=== PATIENT | female | born 1985 | race Caucasian/White ===

== ENCOUNTER 2018-10-09 15:54 | Emergency (ER) | payer MEDICAID ==
[~2018-10-09] VITALS: Ht 182.9 cm; Wt 85.0 kg
[~2018-10-09 15:54] MED LIST: FLINTSTONES OR; GINGER ROOT250 MG PO; LORTAB5 PO; NAPROSYN500 MG PO; NO; NO MEDICATIONS; ONDANSETRON4 MG OR; PHENERGAN25 MG RE; PHENERGAN25 MG/TAB PO; PROMETHAZINE25 M1 PO; ULTRAM50 M1 PO; ULTRAM50 MG OR; VITAMIN B-625 MG PO; ZOFRAN ODT4 MG PO; ZOFRAN4 MG/TAB PO
[2018-10-09 18:27] VITALS: BP 128/63
[2018-10-09] MEDS ORDERED: HYDROCO/APAP1 TA9 PO (18:41)
[2018-10-09] MEDS ORDERED: MOTRIN400 MG PO (18:41)
== END 2018-10-09 18:45 | disposition home or self-care (01) ==
LOC: ED 15:54
DX: S53.104A Unspecified dislocation of right ulnohumeral joint, initial encounter (principal); F17.200 Nicotine dependence, unspecified, uncomplicated; W01.0XXA Fall on same level from slipping, tripping and stumbling without subsequent striking against object, initial encounter; Y93.89 Activity, other specified; Y92.009 Unspecified place in unspecified non-institutional (private) residence as the place of occurrence of the external cause

== ENCOUNTER 2018-11-14 08:55 | Emergency (ER) | payer MEDICAID ==
[~2018-11-14] VITALS: Ht 335.3 cm; Wt 75.0 kg
[~2018-11-14 08:55] MED LIST changes: +HYDROCO/APAP1 TA9 PO; +MOTRIN400 MG PO
[2018-11-14 09:35] LABS: IMMATURE GRANULOCYTES 0.4 % (0.0-5.0); MEAN CORPUSCULAR HGB 33.7 pG CALC (26.0-32.0); MEAN CORPUSCULAR HGB CONC 35.2 g/L CALC (32.0-36.0); NEUT# 9.81 thou/uL (2.00-7.15); RED BLOOD COUNT 4.63 mill/uL (4.20-5.60); RED CELL DISTRI WIDTH 12.7 % (11.5-15.5)
[2018-11-14 09:40] LABS: HEMATOCRIT 44.3 % (37.0-47.0); HEMOGLOBIN 15.6 g/dl (12.0-16.0); MEAN CELL VOLUME 95.7 fL CALC (80.0-100.0)
[2018-11-14 09:52] LABS: ALKALINE PHOSPHATASE 67 u/l (38-126); BILIRUBIN, TOTAL 0.8 mg/dL (0.0-1.4); BUN 10 mg/dL (7-17); BUN/CREATININE RATIO 17 (12-20 (CALC)); CARBON DIOXIDE 23 mmol/l (22-30); CHLORIDE 105 mmol/l (95-108); CREATININE 0.6 mg/dL (0.5-1.0); GFR > 60 ML/MIN (>=60 (CALC)); GFR FOR AFR.AMER. > 60 ML/MIN (>=60 (CALC)); LIPASE 52 u/l (23-300); SGOT/AST 36 u/l (14-36); TOTAL PROTEIN 7.9 g/dL (6.3-8.2)
[2018-11-14 09:58] LABS: ALBUMIN 4.9 g/dL (3.2-5.0); ANION GAP 16 (6-22 (CALC)); POTASSIUM 4.1 mmol/l (3.5-5.1); SODIUM 140 mmol/l (137-146)
[2018-11-14 11:24] LABS: URINE BILIRUBIN - DIPSTICK NEGATIVE (NEGATIVE); URINE BLOOD DIPSTICK TRACE-LYSED (NEGATIVE); URINE COLOR YELLOW; URINE GLUCOSE - DIPSTICK NEGATIVE (NEGATIVE); URINE KETONE 40 mg/dL (NEGATIVE); URINE LEUK ESTERASE NEGATIVE (NEGATIVE); URINE NITRITE - DIPSTICK NEGATIVE (Negative); URINE PH >=9.0 (4.5-8.0); URINE PROTEIN - DIPSTICK NEGATIVE (NEG-TRACE); URINE UROBILINOGEN - DIPSTICK 0.2 E.U./dL (0.2)
[2018-11-14] MEDS ORDERED: ONDANSETRON4 MG PO (11:48)
[2018-11-14 12:59] VITALS: BP 106/49
== END 2018-11-14 12:59 | disposition home or self-care (01) ==
LOC: ED 08:55
PROVIDERS: Family Medicine
DX: R10.13 Epigastric pain (principal); R11.10 Vomiting, unspecified; F17.200 Nicotine dependence, unspecified, uncomplicated
CPT/HCPCS: Q9967

== ENCOUNTER 2019-11-20 10:28 | Observation (INO) | payer MEDICAID ==
[~2019-11-20] VITALS: Ht 170.2 cm; Wt 79.5 kg
[~2019-11-20 10:28] MED LIST changes: +ONDANSETRON4 MG PO
--- NOTE | 2019-11-20 10:36 | NUR ---
AMBULATED TO ROOM ACTIVLY DRY HEAVING
--- NOTE | 2019-11-20 11:00 | NUR ---
PT STATES ABD PAIN HAS STARTED LAST NIGHT. PT CRYING AND YELLING ON STRETCHER, PT DENIES ANY VOMITING OR DIRRAHEA. PT IS AOX4,. DENIES AYN C/P, SOB OR WEAKNESS
[2019-11-20 11:08] LABS: HEMATOCRIT 44.5 % (37.0-47.0); HEMOGLOBIN 15.4 g/dl (12.0-16.0); IMMATURE GRANULOCYTES 0.4 % (0.0-5.0); MEAN CELL VOLUME 96.1 fL CALC (80.0-100.0); MEAN CORPUSCULAR HGB 33.3 pG CALC (26.0-32.0); MEAN CORPUSCULAR HGB CONC 34.6 g/L CALC (32.0-36.0); NEUT# 12.77 thou/uL (2.00-7.15); RED BLOOD COUNT 4.63 mill/uL (4.20-5.60); RED CELL DISTRI WIDTH 12.8 % (11.5-15.5)
[2019-11-20 11:39] LABS: ALBUMIN 4.9 g/dL (3.2-5.0); ALKALINE PHOSPHATASE 74 u/l (38-126); AMYLASE 43 u/l (30-110); ANION GAP 18 (6-22 (CALC)); BILIRUBIN, TOTAL 1.1 mg/dL (0.0-1.4); BUN 16 mg/dL (7-17); BUN/CREATININE RATIO 34 (12-20 (CALC)); CARBON DIOXIDE 21 mmol/l (22-30); CHLORIDE 103 mmol/l (95-108); CREATININE 0.5 mg/dL (0.5-1.0); GFR > 60 ML/MIN (>=60 (CALC)); GFR FOR AFR.AMER. > 60 ML/MIN (>=60 (CALC)); LIPASE 55 u/l (23-300); POTASSIUM 3.9 mmol/l (3.5-5.1); SGOT/AST 31 u/l (14-36); SODIUM 138 mmol/l (137-146); TOTAL PROTEIN 8.6 g/dL (6.3-8.2)
--- NOTE | 2019-11-20 12:00 | NUR ---
PT RESTING ON STRETHCER, IV PATENT WITH FLUIDS RUNNING. PT STATES THAT PAIN IS STARTING TO RETURN
--- NOTE | 2019-11-20 13:00 | NUR ---
PAIN AND NAUSEA HAS DECREASED WITH MEDICATION
--- NOTE | 2019-11-20 14:00 | NUR ---
PT ASLEEP ON STRETCHER,
[2019-11-20 14:44] LABS: URINE BILIRUBIN - DIPSTICK NEGATIVE (NEGATIVE); URINE BLOOD DIPSTICK TRACE-INTACT (NEGATIVE); URINE COLOR YELLOW; URINE GLUCOSE - DIPSTICK NEGATIVE (NEGATIVE); URINE KETONE 40 mg/dL (NEGATIVE); URINE LEUK ESTERASE NEGATIVE (NEGATIVE); URINE NITRITE - DIPSTICK NEGATIVE (Negative); URINE PROTEIN - DIPSTICK 30 mg/dL (NEG-TRACE); URINE UROBILINOGEN - DIPSTICK 0.2 E.U./dL (0.2)
[2019-11-20 14:52] LABS: BARBITURATES NEGATIVE (NEGATIVE); COCAINE NEGATIVE (NEGATIVE); METHADONE NEGATIVE (NEGATIVE); OXCYCODONE NEGATIVE (NEGATIVE); TETRAHYDROCANNABIONOL POSITIVE (NEGATIVE); TRICYLIC ANTIDEPRESSANTS NEGATIVE (NEGATIVE)
--- NOTE | 2019-11-20 15:00 | NUR ---
PT ASLEEP ON STRETCHER, AWAKENS WITH VOICE, PT DENIES ANY COMPLAINTS AT THIS TIME.
[2019-11-20 15:03] LABS: URINE BACTERIA FEW hpf; URINE SQUAMOUS EPITHELIAL CELL FEW EPI/hpf (0-FEW)
--- NOTE | 2019-11-20 16:00 | NUR ---
PT RESTING ON STRETCHER, IV PATENT WITH FLUIDS RUNNING
--- NOTE | 2019-11-20 17:00 | NUR ---
PT ASLEEP ON STRETCHER, AROUSES EASILY- NO NEEDS STATED
--- NOTE | 2019-11-20 18:00 | NUR ---
PT RESTING ON STRETCHER, AWAITING ADMISSION
--- NOTE | 2019-11-20 18:24 | NUR ---
REPORT CALLED TO [facility]- CORRINE RAUSCH ACCEPTED PT
[2019-11-20 18:41] VITALS: BP 99/61
--- NOTE | 2019-11-20 18:41 | NUR ---
PT ARRIVED TO FLOOR ACCOMPANIED BY ER NURSE. NO DISTRESS. PT ORIENTED TO ROOM AND FLOOR. CALL LIGHT WITHIN REACH. VSS. PT AWAKE AND ORIENTED X4.
[2019-11-20 20:00] VITALS: BP 150/74
--- NOTE | 2019-11-20 21:50 | NUR ---
PT SLEEPING IN BED. NO DISTRESS NOTED. CONTINUE TO MONITOR.
[2019-11-21] VITALS: BP 91/55
--- NOTE | 2019-11-21 00:53 | NUR ---
PT DENIES ANY N&V AT THIS TIME. STATES SHE WILL GO BACK TO SLEEP. CONTINUE TO MONITOR.
--- NOTE | 2019-11-21 02:10 | NUR ---
ASSISTED PT TO THE BATHROOM. STEADY GAIT NOTED. PT DENIES ANY NAUSEA OR DIZZINESS. CONTINUE TO MONITOR.
[2019-11-21 04:00] VITALS: BP 90/51
--- NOTE | 2019-11-21 05:53 | NUR ---
PT SLEEPING IN BED. NO DISTRESS NOTED. CONTINUE TO MONITOR.
[2019-11-21 06:49] LABS: MEAN CELL VOLUME 98.1 fL CALC (80.0-100.0); MEAN CORPUSCULAR HGB 33.6 pG CALC (26.0-32.0); MEAN CORPUSCULAR HGB CONC 34.2 g/L CALC (32.0-36.0); RED BLOOD COUNT 3.72 mill/uL (4.20-5.60)
[2019-11-21 06:53] LABS: HEMATOCRIT 36.5 % (37.0-47.0); HEMOGLOBIN 12.5 g/dl (12.0-16.0)
[2019-11-21 07:09] LABS: ANION GAP 10 (6-22 (CALC)); BUN 11 mg/dL (7-17); BUN/CREATININE RATIO 24 (12-20 (CALC)); CARBON DIOXIDE 20 mmol/l (22-30); CHLORIDE 110 mmol/l (95-108); CREATININE 0.5 mg/dL (0.5-1.0); GFR > 60 ML/MIN (>=60 (CALC)); GFR FOR AFR.AMER. > 60 ML/MIN (>=60 (CALC)); POTASSIUM 3.4 mmol/l (3.5-5.1); SODIUM 137 mmol/l (137-146)
--- NOTE | 2019-11-21 08:50 | NUR ---
HEAD TO TOE ASSESSMENT COMPLETED. NO C/O PAIN NOR DISCOMFORT. SKIN INTACT, NO RESP DISSTRESS NOTED, IV INTACT WITH FLUIDS AT 100 HR/ML. LAST BM 11/21/19. POC DISCUSSED.
[2019-11-21 11:46] VITALS: BP 103/65
[2019-11-21] MEDS ORDERED: ZOFRAN4 MG/TAB PO (13:08)
[2019-11-21 15:32] VITALS: BP 112/64
--- NOTE | 2019-11-21 16:09 | NUR ---
DISCHARGE INSTRUCTION GIVEN TO PATIENT AND REVIEWED. PATIENT VERBALIZED UNDERSTANDING. IV D/C AND END OF CATH INTACT. NO SKIN ISSUES NOTED. NO RESP DISTRESS NOTED. PATIENT WALKED OUT WITH NO ISSUES WITH NURSE AT HER SIDE.
== END 2019-11-21 16:08 | disposition home or self-care (01) ==
LOC: ED 10:28 → ED-I 16:49 → ED 17:29 → MS2 17:30
PROVIDERS: Emergency Medicine; ADMIT Internal Medicine; ATTEND Internal Medicine
DX: K52.9 Noninfective gastroenteritis and colitis, unspecified (principal); I95.9 Hypotension, unspecified; E87.5 Hyperkalemia; J45.909 Unspecified asthma, uncomplicated; F17.210 Nicotine dependence, cigarettes, uncomplicated
CPT/HCPCS: G0378; J2060

== ENCOUNTER 2020-01-01 16:07 | Emergency (ER) | payer MEDICAID ==
[2020-01-01] MEDS ORDERED: AMOXICILLIN500 M2 PO (16:23)
[2020-01-01 16:24] VITALS: BP 127/59
== END 2020-01-01 16:26 | disposition home or self-care (01) ==
LOC: ED 16:07
DX: J02.9 Acute pharyngitis, unspecified (principal); F17.210 Nicotine dependence, cigarettes, uncomplicated

== ENCOUNTER 2020-03-08 14:18 | Emergency (ER) | payer MEDICAID ==
[~2020-03-08 14:18] MED LIST changes: +AMOXICILLIN500 M2 PO
[2020-03-08] MEDS ORDERED: ALBUTEROL SUL0.083 % IN (14:44)
[2020-03-08 15:03] LABS: IMMATURE GRANULOCYTES 0.3 % (0.0-5.0); MEAN CELL VOLUME 95.3 fL CALC (80.0-100.0); MEAN CORPUSCULAR HGB 33.2 pG CALC (26.0-32.0); MEAN CORPUSCULAR HGB CONC 34.8 g/dL CAL (32.0-36.0); NEUT# 14.54 thou/uL (2.00-7.15); RED BLOOD COUNT 4.73 mill/uL (4.20-5.60); RED CELL DISTRI WIDTH 12.4 % (11.5-15.5)
[2020-03-08 15:07] LABS: HEMATOCRIT 45.1 % (37.0-47.0); HEMOGLOBIN 15.7 g/dl (12.0-16.0)
[2020-03-08 15:08] LABS: URINE BILIRUBIN - DIPSTICK NEGATIVE (NEGATIVE); URINE BLOOD DIPSTICK SMALL (NEGATIVE); URINE COLOR YELLOW; URINE GLUCOSE - DIPSTICK NEGATIVE (NEGATIVE); URINE KETONE 40 mg/dL (NEGATIVE); URINE LEUK ESTERASE NEGATIVE (NEGATIVE); URINE NITRITE - DIPSTICK NEGATIVE (Negative); URINE PROTEIN - DIPSTICK NEGATIVE (NEG-TRACE); URINE SPECIFIC GRAVITY >=1.030; URINE UROBILINOGEN - DIPSTICK 0.2 E.U./dL (0.2)
[2020-03-08 15:18] LABS: URINE SQUAMOUS EPITHELIAL CELL FEW EPI/hpf (0-FEW); URINE WBC 0-2 WBC/hpf (0-5)
[2020-03-08 15:24] LABS: ALKALINE PHOSPHATASE 61 u/l (38-126); ANION GAP 15 (6-22 (CALC)); BILIRUBIN, TOTAL 0.7 mg/dL (0.0-1.4); BUN 11 mg/dL (7-17); BUN/CREATININE RATIO 18 (12-20 (CALC)); CARBON DIOXIDE 23 mmol/l (22-30); CHLORIDE 102 mmol/l (95-108); CREATININE 0.6 mg/dL (0.5-1.0); GFR > 60 ML/MIN (>=60 (CALC)); GFR FOR AFR.AMER. > 60 ML/MIN (>=60 (CALC)); LIPASE 90 u/l (23-300); POTASSIUM 3.9 mmol/l (3.5-5.1); SGOT/AST 25 u/l (14-36); SODIUM 136 mmol/l (137-146); TOTAL PROTEIN 8.6 g/dL (6.3-8.2)
[2020-03-08] MEDS ORDERED: ONDANSETRON4 MG PO (16:11)
[2020-03-08 16:19] VITALS: BP 102/53
== END 2020-03-08 16:25 | disposition home or self-care (01) ==
LOC: ED 14:18
PROVIDERS: Family Medicine
DX: K52.9 Noninfective gastroenteritis and colitis, unspecified (principal); F17.210 Nicotine dependence, cigarettes, uncomplicated
CPT/HCPCS: Q9967

== ENCOUNTER 2020-03-24 21:25 | Emergency (ER) | payer MEDICAID ==
[~2020-03-24 21:25] MED LIST changes: +ALBUTEROL SUL0.083 % IN
[2020-03-24] MEDS ORDERED: KEFLEX500 MG PO (23:55)
[2020-03-25 00:15] VITALS: BP 128/76
== END 2020-03-25 00:50 | disposition home or self-care (01) ==
LOC: ED 21:25
DX: S81.831A Puncture wound without foreign body, right lower leg, initial encounter (principal); F17.210 Nicotine dependence, cigarettes, uncomplicated; W26.8XXA Contact with other sharp object(s), not elsewhere classified, initial encounter; Y93.89 Activity, other specified; Y92.009 Unspecified place in unspecified non-institutional (private) residence as the place of occurrence of the external cause

== ENCOUNTER 2022-05-15 09:31 | Emergency (ER) | payer MEDICAID ==
[~2022-05-15] VITALS: Ht 170.2 cm; Wt 86.1 kg
[2022-05-15] VITALS (10 sets, daily range): BP systolic 104–148; BP diastolic 63–107
[~2022-05-15 09:31] MED LIST changes: +KEFLEX500 MG PO
[2022-05-15 09:59] LABS: HEMOGLOBIN 17.5 g/dl (12.0-16.0); IMMATURE GRANULOCYTES 0.2 % (0.0-5.0); MEAN CELL VOLUME 98.3 fL CALC (80.0-100.0); MEAN CORPUSCULAR HGB 33.7 pG CALC (26.0-32.0); MEAN CORPUSCULAR HGB CONC 34.2 g/dL CAL (32.0-36.0); NEUT# 5.7 thou/uL (2.00-7.15); RED BLOOD COUNT 5.2 mill/uL (4.20-5.60); RED CELL DISTRI WIDTH 13.1 % (11.5-15.5)
[2022-05-15 10:32] LABS: ALBUMIN 4.9 g/dL (3.2-5.0); ALKALINE PHOSPHATASE 68 u/l (38-126); ANION GAP 14 (6-22 (CALC)); BILIRUBIN, TOTAL 0.9 mg/dL (0.0-1.4); BUN 15 mg/dL (7-17); BUN/CREATININE RATIO 17 (12-20 (CALC)); CARBON DIOXIDE 27 mmol/l (22-30); CHLORIDE 102 mmol/l (95-108); CREATININE 0.9 mg/dL (0.5-1.0); GFR FOR AFR.AMER. > 60 ML/MIN (>=60 (CALC)); GFR OTHER RACES > 60 ML/MIN (>=60 (CALC)); LIPASE 111 u/l (23-300); POTASSIUM 3.4 mmol/l (3.5-5.1); SGOT/AST 33 u/l (14-36); SODIUM 140 mmol/l (137-146); TOTAL PROTEIN 8.7 g/dL (6.3-8.2)
[2022-05-15 10:38] LABS: HEMATOCRIT 51.1 % (37.0-47.0)
[2022-05-15] MEDS ORDERED: METOCLOPRAMIDE10 MG PO (11:31)
[2022-05-15] MEDS ORDERED: PHENERGAN25 MG RE (11:31)
[2022-05-15 12:33] LABS: URINE BLOOD DIPSTICK MODERATE (NEGATIVE); URINE COLOR YELLOW; URINE GLUCOSE - DIPSTICK NEGATIVE (NEGATIVE); URINE KETONE NEGATIVE (NEGATIVE); URINE LEUK ESTERASE NEGATIVE (NEGATIVE); URINE PROTEIN - DIPSTICK NEGATIVE (NEG-TRACE)
[2022-05-15 12:34] LABS: URINE BILIRUBIN - DIPSTICK SMALL (NEGATIVE); URINE NITRITE - DIPSTICK NEGATIVE (Negative)
[2022-05-15 12:35] LABS: URINE EPITHELIAL CELLS FEW EPI/hpf (0-FEW)
== END 2022-05-15 12:15 | disposition home or self-care (01) ==
LOC: ED 09:31
PROVIDERS: Internal Medicine
DX: R11.2 Nausea with vomiting, unspecified (principal); R10.9 Unspecified abdominal pain; E87.6 Hypokalemia; J45.909 Unspecified asthma, uncomplicated; F17.210 Nicotine dependence, cigarettes, uncomplicated; Z79.899 Other long term (current) drug therapy
CPT/HCPCS: J3475

== ENCOUNTER 2023-01-23 18:45 | Emergency (ER) | payer MEDICAID ==
[~2023-01-23] VITALS: Ht 170.2 cm; Wt 90.0 kg
[~2023-01-23 18:45] MED LIST changes: +METOCLOPRAMIDE10 MG PO
[2023-01-23 19:31] LABS: BASO% 0.1 % (0-3); IMMATURE GRANULOCYTES 0.3 % (0.0-5.0); LYMPH% 7.1 % (15-41); MEAN CELL VOLUME 95.7 fL CALC (80.0-100.0); MEAN CORPUSCULAR HGB 32.6 pG CALC (26.0-32.0); MONO% 1.5 % (2-13); NEUT# 13.77 thou/uL (2.00-7.15); RED BLOOD COUNT 4.91 mill/uL (4.20-5.60); RED CELL DISTRI WIDTH 13.1 % (11.5-15.5)
[2023-01-23 19:48] LABS: ALBUMIN 5.2 g/dL (3.2-5.0); ALKALINE PHOSPHATASE 49 u/l (38-126); AMYLASE 80 u/l (30-110); ANION GAP 18 (6-22 (CALC)); BUN 13 mg/dL (7-17); BUN/CREATININE RATIO 24 (12-20 (CALC)); CARBON DIOXIDE 22 mmol/l (22-30); CHLORIDE 104 mmol/l (95-108); CREATININE 0.5 mg/dL (0.5-1.0); GFR FOR AFR.AMER. > 60 ML/MIN (>=60 (CALC)); GFR OTHER RACES > 60 ML/MIN (>=60 (CALC)); LIPASE 84 u/l (23-300); SGOT/AST 55 u/l (14-36); SODIUM 139 mmol/l (137-146); TOTAL PROTEIN 9.5 g/dL (6.3-8.2)
[2023-01-23 21:44] LABS: URINE BILIRUBIN - DIPSTICK NEGATIVE (NEGATIVE); URINE BLOOD DIPSTICK MODERATE (NEGATIVE); URINE COLOR YELLOW; URINE GLUCOSE - DIPSTICK NEGATIVE (NEGATIVE); URINE KETONE 15 mg/dL (NEGATIVE); URINE LEUK ESTERASE NEGATIVE (NEGATIVE); URINE PROTEIN - DIPSTICK NEGATIVE (NEG-TRACE); URINE SPECIFIC GRAVITY 1.015; URINE UROBILINOGEN - DIPSTICK 0.2 E.U./dL (0.2)
[2023-01-23 21:45] LABS: URINE NITRITE - DIPSTICK NEGATIVE (Negative)
[2023-01-23 21:51] LABS: URINE SQUAMOUS EPITHELIAL CELL RARE EPI/hpf (0-FEW); URINE WBC 0-2 WBC/hpf (0-5)
[2023-01-23 22:56] VITALS: BP 120/79
[2023-01-23] MEDS ORDERED: CIPROFLOXACN500 MG PO (22:56)
[2023-01-23] MEDS ORDERED: PREVACID30 M1 PO (22:56)
[2023-01-23] MEDS ORDERED: ONDANSETRON4 MG PO (22:56)
== END 2023-01-23 23:08 | disposition home or self-care (01) ==
LOC: ED 18:45
PROVIDERS: Family Medicine
DX: K29.00 Acute gastritis without bleeding (principal); Z20.822 Contact with and (suspected) exposure to COVID-19; J45.909 Unspecified asthma, uncomplicated; F17.200 Nicotine dependence, unspecified, uncomplicated; D72.829 Elevated white blood cell count, unspecified
CPT/HCPCS: J1956; Q9967; S0164

== ENCOUNTER 2024-06-30 19:02 | Emergency (ER) | payer MEDICAID ==
[~2024-06-30] VITALS: Ht 170.2 cm; Wt 86.0 kg
[~2024-06-30 19:02] MED LIST changes: +CIPROFLOXACN500 MG PO; +PREVACID30 M1 PO
[2024-06-30] MEDS ORDERED: IBUPROFEN 600 MG/TAB PO ONE (20:00)
[2024-06-30] MEDS ORDERED: ACETAMINOPHEN 500 MG TAB PO ONE (20:00)
[2024-06-30 22:14] LABS: URINE BILIRUBIN - DIPSTICK Negative (NEGATIVE); URINE BLOOD DIPSTICK Negative (NEGATIVE); URINE COLOR Yellow; URINE GLUCOSE - DIPSTICK Negative (NEGATIVE); URINE KETONE Negative (NEGATIVE); URINE LEUK ESTERASE Negative (NEGATIVE); URINE NITRITE - DIPSTICK Negative (Negative); URINE PH 6.5 (4.5-8.0); URINE PROTEIN - DIPSTICK Negative (NEG-TRACE); URINE SPECIFIC GRAVITY 1.015; URINE UROBILINOGEN - DIPSTICK 0.2 E.U./dL (0.2)
[2024-06-30] MEDS ORDERED: DIFLUCAN100 M1 PO (22:20)
[2024-06-30] MEDS ORDERED: LOTRISONE CREAM15 G1 EX (22:20)
[2024-06-30] MEDS ORDERED: FLUCONAZOLE 150 MG/TAB PO ONE (22:25)
[2024-06-30 23:10] VITALS: BP 138/86
== END 2024-06-30 23:10 | disposition home or self-care (01) ==
LOC: ED 19:02
PROVIDERS: Family Medicine
DX: B37.31 Acute candidiasis of vulva and vagina (principal); F17.200 Nicotine dependence, unspecified, uncomplicated

== ENCOUNTER 2024-11-17 19:20 | Observation (INO) | payer OTHER ==
[~2024-11-17] VITALS: Ht 170.2 cm; Wt 92.8 kg
[~2024-11-17 19:20] MED LIST changes: +DIFLUCAN100 M1 PO; +LOTRISONE CREAM15 G1 EX
--- NOTE | 2024-11-17 19:50 | NUR ---
PT AMBULATED TO RM 5 W/ STEADY GAIT
[2024-11-17 20:08] VITALS: BP 139/71
[2024-11-17] MEDS ORDERED: NITROGLYCERIN 0.4 MG/TAB SL ONE (20:10)
[2024-11-17] MEDS ORDERED: ASPIRIN 81 MG/TAB PO ONE (20:10)
[2024-11-17 20:17] LABS: BASO% 0.1 % (0-3); EOS% 0.4 % (0-8); HEMATOCRIT 42.2 % (37.0-47.0); HEMOGLOBIN 14.6 g/dl (12.0-16.0); IMMATURE GRANULOCYTES 0.2 % (0.0-5.0); LYMPH% 19.5 % (15-41); MEAN CELL VOLUME 96.3 fL CALC (80.0-100.0); MEAN CORPUSCULAR HGB 33.3 pG CALC (26.0-32.0); MEAN CORPUSCULAR HGB CONC 34.6 g/dL CAL (32.0-36.0); MONO% 4.7 % (2-13); NEUT# 13.83 thou/uL (2.00-7.15); NEUT% 75.1 % (42-76); RED BLOOD COUNT 4.38 mill/uL (4.20-5.60); RED CELL DISTRI WIDTH 12.8 % (11.5-15.5)
[2024-11-17 20:31] VITALS: BP 106/60
[2024-11-17 20:31] LABS: ALBUMIN 4.5 g/dL (3.2-5.0); BILIRUBIN, TOTAL 0.6 mg/dL (0.02-1.3); CREATININE 0.7 mg/dL (0.5-1.0); POTASSIUM 3.5 mmol/l (3.5-5.1); TOTAL PROTEIN 7.8 g/dL (6.3-8.2)
[2024-11-17 20:38] LABS: D-DIMER 0.8 mg/L (0.19-0.60)
[2024-11-17 21:00] VITALS: BP 92/57
--- NOTE | 2024-11-17 21:00 | NUR ---
Pt. rechecked post pain med administration. Pain level (1-10): 0/10 Pain better/worse: BETTER PT REPORTS IMPROVEMENT OF PAIN POST ADMINISTRATION OF NITTRO SL AND ASPIRIN PO
[2024-11-17 22:00] VITALS: BP 101/54
--- NOTE | 2024-11-17 22:00 | NUR ---
Reassessment of patient completed. No distress noted.
--- NOTE | 2024-11-18 00:04 | NUR ---
PT REPORT GIVEN TO [facility]ARD [facility]
--- NOTE | 2024-11-18 00:15 | NUR ---
PT TRANSPORTED TO [facility] ROOM 279 WITH TELEBOX #11 VIA WHEELCHAIR
--- NOTE | 2024-11-18 00:28 | NUR ---
PT ARRIVED TO [facility] VIA WHEELCHAIR. PT ABLE TO AMBULATE WITHOUT ASSISTANCE. PT REPORTS NO PAIIN AT THIS TIME. SKIN INTACT NO EDEMA. IV FLUSHED SL. CALL LIGHT WITHIN REACH. PT STATED UNDERSTANDING ON HOW TO USE IT. PLAN OF CARE REVIEW WITH PT.
[2024-11-18 04:00] VITALS: BP 91/50
[2024-11-18 04:08] VITALS: BP 91/50
--- NOTE | 2024-11-18 04:38 | NUR ---
PT RESTING NO DISTRESS NOTED ON EXAM. PT STATED NOT HAVING CP AT THIS TIME. CALL LIGHT WITHIN REACH. PLAN OF CARE ONGOING.
[2024-11-18 07:18] VITALS: BP 97/43
--- NOTE | 2024-11-18 07:20 | NUR ---
PT IS FOUND RESTING COMFORTABLY IN BED. PT IS A&O X4; STABLE. PT CAN MOVE ALL EXTREMITES. PT CAN MAKE HER NEEDS KNOWN. PLAN OF CARE WAS REVIEWED WITH THE PT; NO FURTHER QUESTIONS AT THIS TIME. ALL NATIONAL PT SAFETY PRECAUTIONS IN PLACE.
[2024-11-18 08:13] LABS: BASO% 0.3 % (0-3); EOS% 2.3 % (0-8); HEMATOCRIT 43.8 % (37.0-47.0); HEMOGLOBIN 15.2 g/dl (12.0-16.0); IMMATURE GRANULOCYTES 0.1 % (0.0-5.0); LYMPH% 27.1 % (15-41); MEAN CELL VOLUME 97.1 fL CALC (80.0-100.0); MEAN CORPUSCULAR HGB 33.7 pG CALC (26.0-32.0); MEAN CORPUSCULAR HGB CONC 34.7 g/dL CAL (32.0-36.0); MONO% 4.4 % (2-13); NEUT# 6.03 thou/uL (2.00-7.15); NEUT% 65.8 % (42-76); RED BLOOD COUNT 4.51 mill/uL (4.20-5.60); RED CELL DISTRI WIDTH 12.7 % (11.5-15.5)
[2024-11-18 08:47] LABS: ALBUMIN 4.2 g/dL (3.2-5.0); CREATININE 0.7 mg/dL (0.5-1.0); POTASSIUM 4.1 mmol/l (3.5-5.1); TOTAL PROTEIN 6.9 g/dL (6.3-8.2)
[2024-11-18] MEDS ORDERED: ASPIRIN EC 81 MG/TAB PO SCH (09:00)
[2024-11-18 09:12] LABS: CHOLESTEROL HDL RATIO 6.4 (<4.4 (CALC))
[2024-11-18] MEDS ORDERED: ADLT ASA LOW81 MG PO (09:25)
[2024-11-18] MEDS ORDERED: ATORVASTATIN CA40 MG PO (09:25)
[2024-11-18 10:53] VITALS: BP 100/42
[2024-11-18] MEDS ORDERED: ATORVASTATIN CALCIUM 40 MG/TAB PO SCH (21:00)
--- NOTE | 2024-11-20 11:51 | NUR ---
Discharge follow up call completed 11/20/24. Patient states she is doing well since discharge. Patient is taking prescribed medication as directed. Patient is waiting for insurance authorization so she can schedule a follow up appointment with a new PCP. She anticipates notifictyion in . 48 hours. No needs or concerns verbalized at this time.
== END 2024-11-18 14:00 | disposition home or self-care (01) ==
LOC: ED 19:20 → ED-I 22:45 → ED 23:13 → MS2 23:14
PROVIDERS: Family Medicine; Nurse Practitioner Family; ADMIT Internal Medicine; ATTEND Internal Medicine
DX: R07.89 Other chest pain (principal); F41.9 Anxiety disorder, unspecified; E78.5 Hyperlipidemia, unspecified; R59.0 Localized enlarged lymph nodes; F17.200 Nicotine dependence, unspecified, uncomplicated; Z82.49 Family history of ischemic heart disease and other diseases of the circulatory system
CPT/HCPCS: G0378; Q9967